=== PATIENT | male | born 1985 | race Hispanic/Latino ===

== ENCOUNTER 2021-10-23 19:19 | Emergency (ER) | payer SELFPAY ==
[~2021-10-23] VITALS: Ht 167.6 cm; Wt 81.2 kg
[2021-10-23] MEDS ORDERED: KETOROLAC 60 MG VIAL (30MG/ML) IM ONE (21:00)
[2021-10-23] MEDS ORDERED: ORPHENADRINE CITRATE 30 MG/ML ML IM ONE (21:00)
[2021-10-23] MEDS ORDERED: DEXAMETHASONE SOD PHOSPHATE 4 MG/ML 1ML VIAL IM ONE (22:00)
[2021-10-23] MEDS ORDERED: PRED20TA3 PO (22:00)
[2021-10-23] MEDS ORDERED: CYCL-309 PO (22:00)
[2021-10-23] MEDS ORDERED: IBUP-2070 PO (22:00)
[2021-10-23 22:32] VITALS: BP 128/64
== END 2021-10-23 22:33 | disposition home or self-care (01) ==
LOC: EDH 19:19
DX: M62.830 Muscle spasm of back (principal); M51.86 Other intervertebral disc disorders, lumbar region
CPT/HCPCS: 72131; 96372 ×3; 99284; J1100; J1885; J2360